=== PATIENT | female | born 1980 | race Two or more races ===

== ENCOUNTER 2017-01-08 | Inpatient (IN) | payer MEDICAID ==
[~2017-01-08] VITALS: Ht 139.7 cm; Wt 60.9 kg
[2017-01-08] MEDS ORDERED: PRENATAL PLUS I1 TAB PO (23:08)
[2017-01-12] MEDS ORDERED: MOTRIN800 MG PO (08:05)
[2017-01-12] MEDS ORDERED: LAN-O-SOOTHE7 GM TOP (08:05)
== END 2017-01-12 11:40 | disposition short-term general hospital (02) | DRG 766 ==
PROVIDERS: ADMIT Family Medicine
PROC: 3E0P7GC Introduction of Other Therapeutic Substance into Female Reproductive, Via Natural or Artificial Opening (ICD-10-PCS; principal; 2017-01-09)
PROC: 10907ZC Drainage of Amniotic Fluid, Therapeutic from Products of Conception, Via Natural or Artificial Opening (ICD-10-PCS; principal; 2017-01-09)
PROC: 10D00Z1 Extraction of Products of Conception, Low, Open Approach (ICD-10-PCS; principal; 2017-01-09)
DX: O24.429 Gestational diabetes mellitus in childbirth, unspecified control (principal); Z3A.40 40 weeks gestation of pregnancy; Z37.0 Single live birth; O09.513 Supervision of elderly primigravida, third trimester; O77.9 Labor and delivery complicated by fetal stress, unspecified
CPT/HCPCS: A9150; J0690; J1885; J2270; J2590; J2765; J2795; J3010

== ENCOUNTER → 2017-03-05 | Outpatient (CLI) | payer SELFPAY ==
[~2017-03-05] MED LIST: LAN-O-SOOTHE7 GM TOP; MOTRIN800 MG PO; PRENATAL PLUS I1 TAB PO
== END | disposition short-term general hospital (02) ==
LOC: CLOBGYN 10:22
DX: Z30.9 Encounter for contraceptive management, unspecified (principal)